=== PATIENT | male | born 1950 | race African-American/Black ===

== ENCOUNTER 2016-08-11 06:07 | Inpatient (IN) ==
[2016-08-08 13:38] LABS: Basophils % 1.2 % (0.0-0.8); Eosinophils # 0.2 10*3/uL (0.0-0.87); Eosinophils % 5.4 % (0.00-10.9); Hematocrit 45.9 VOL% (42.0-52.0); Hemoglobin 15.5 GM/DL (14.0-18.0); Lymphocytes # 1.2 10*3/uL (1.4-4.0); Lymphocytes % 35.1 % (21.2-54.2); Mean Corpuscular HGB Conc 33.8 GM/DL (32-36); Mean Corpuscular Hemoglobin 29 PG (27-34); Mean Corpuscular Volume 84.7 FL (87-102); Mean Platelet Volume 9.8 FL (9.6-12.0); Monocytes # 0.4 10*3/uL (0.11-0.8); Monocytes % 10.7 % (1.7-12.7); Neutrophils # 1.6 10*3/uL (1.4-7.4); Neutrophils % 47.6 % (38.7-73.9); Platelet Count 172 T/CUMM (130-400); Red Blood Count 5.42 MC/CUMM (3.8-5.5); Red Cell Distribution Width 12.5 % (9.3-17.3); White Blood Count 3.4 T/CUMM (4-12)
[2016-08-08 13:57] LABS: Bilirubin,Total 0.6 MG/DL (0.2-1.0); Calcium 8.7 MG/DL (8.5-10.1); Total Protein 6.8 G/DL (6.4-8.3)
[2016-08-08 13:58] LABS: Osmolality,Calculated 283.4 MOS/KG (273-304); Potassium 4.2 MMOL/L (3.5-5.1)
--- NOTE | 2016-08-09 08:39 | EKG Report ---
Stationary ECG Study [facility] Test Date: 08/08/2016 1:17:34 PM Pat Name: ELLE TRAMMELL Department: Room: Gender: M Bow Tacker: RONA 08/11/16 RY : 1950 Requested by: Clay Ovalles Order Number: [id number] Reading MD: JOSE DE JESUS DAVENPORT Intervals [place] Rate: 66 P: 56 OR: 188 QRS: 67 QRSD: 105 T: 192 QT: 381 QTc: 395 Interpretive Statements SINUS RHYTHM MODERATE T-WAVE ABNORMALITY, CONSIDER ANTEROLATERAL ISCHEMIA MODERATE T-WAVE ABNORMALITY, CONSIDER INFERIOR ISCHEMIA INTERPRETATION BASED ON A DEFAULT AGE OF 40 YEARS Electronically Signed On 08-09-16 11:16:58 CDT by JOSE DE JESUS DAVENPORT [email or web address]
[~2016-08-11 06:07] MED LIST: ceFAZolin 2,000 MG in PREMIX 1 EACH IV ONE
--- NOTE | 2016-08-11 07:15 | History and Physical Update ---
History and Physical Update - History and Physical H&P was reviewed, the patient examined and there: are no changes in the patients condition since last H&P was completed.
[2016-08-11] MEDS ORDERED: FAMOTIDINE 20 MG TABLET PO ONE (07:48)
[2016-08-11] MEDS ORDERED: LORazepam 1 MG TABLET PO ONE (07:48)
[2016-08-11] MEDS ORDERED: FAMOTIDINE 20 MG TABLET ONE (08:19)
[2016-08-11] MEDS ORDERED: LORazepam 1 MG TABLET ONE (08:19)
[2016-08-11] MEDS ORDERED: LACTATED RINGERS 1,000 ML IV SCH (08:30)
[2016-08-11] MEDS ORDERED: BUPIVACAINE 0.25% 50 ML VIAL ONE (10:21)
[2016-08-11] MEDS ORDERED: LIDOCAINE 2% 5 ML VIAL ONE (10:30)
[2016-08-11] MEDS ORDERED: PROPOFOL 200 MG/20 ML VIAL IV ONE (10:30)
[2016-08-11] MEDS ORDERED: ONDANSETRON 4 MG/2 ML VIAL ONE (10:30)
[2016-08-11] MEDS ORDERED: PHENYLEPHRINE 1 MG/10 ML SYRINGE IV ONE (10:30)
[2016-08-11] MEDS ORDERED: KETOROLAC 30 MG/1 ML VIAL ONE (10:30)
[2016-08-11] MEDS ORDERED: GLUCAGON 1 MG VIAL IM PRN (11:38)
[2016-08-11] MEDS ORDERED: ACETAMINOPHEN 325 MG TABLET PO PRN (11:38)
[2016-08-11] MEDS ORDERED: DEXTROSE 50% 25 GM/50 ML VIAL IV PRN (11:38)
[2016-08-11] MEDS ORDERED: HYDROmorphone 2 MG/1 ML VIAL IV PRN (11:38)
[2016-08-11] MEDS ORDERED: ONDANSETRON 4 MG/2 ML VIAL IV PRN (11:38)
[2016-08-11] MEDS ORDERED: BISACODYL 5 MG TABLET PO PRN (11:38)
--- NOTE | 2016-08-11 11:55 | Operative Note ---
Date of procedure: 08/11/16 Pre-op diagnosis: Chronic osteomyelitis of the left fifth metatarsal head Post-op diagnosis: same Procedure: Operative note: Preoperative diagnosis: Chronic osteomyelitis of the distal fifth metatarsal head with recurrent abscesses and cellulitis Postoperative diagnosis: Same Procedure: Amputation of the fifth metatarsal head with extensive debridement of the wound of the left lateral foot Surgeon Dr. 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 We have treated him multiple times with multiple products to get healing only to have it break down again. He recently was in office with a area of fluctuance on the dorsum of the foot at the fifth metatarsal head as well as drainage from the old wound. We did a CT scan of the of the foot that continue to show the chronic ostial destruction of the fifth metatarsal head. We favored a formal amputation of the fifth toe but he did not want to have the toe removed but did want us to go ahead and debride this bone as best we can to get this process under control. Protamine through same day surgery for this procedure. Procedure: With patient in the supine position prepped and draped in a sterile fashion timeout and antibiotics completed we approach this area of the left foot fifth metatarsal head area. I shaved with a knife somewhat callus from the plantar surface of this metatarsal head area just to get it under control. There was some drainage from a necrotic looking wound on the lateral part of the foot. At that point I elected to make an incision on the lateral part of the foot going through the skin subtenons tissue down to the level of the bone. I use light cauterization control bleeding at this point taking some soft tissue for cultures. As I debrided down to the bone of this area around the fifth metatarsal head was markedly deformed at this time with large amount of necrotic looking bone. We took some bone for cultures. That point I took a periosteal elevator and elevated up this area at the level of the joint system and then went across it with an oscillating saw to remove the distal metatarsal head and the and a portion of the proximal phalanges removing the phalangeal metatarsal joint. The toe was already dislocated at this point prior to this procedure but this is can a hip is clean this bone. Smooth off the bone edges at this time and we washed irrigated out the wound bed. Carefully debrided the skin edges together to get it is clean tissues we could then elected to lay a Austin drain in and closed with 3-0 nylon. Bulky dressing was then applied and the patient taken recovery room. Estimated blood loss 10 cc Sponge count correct 2 Drains: 1/4 inch Austin Complications: None Condition: Stable satisfactory Anesthesia: STEVENA Surgeon / Physician: Clay Ovalles Order Runner: Becca Phillip Estimated blood loss: other (10 cc) Specimens: other (Tissue for cultures and pathology) Condition: stable Disposition: floor Results - Labs CBC & BMP: 08/08/16 13:31 08/08/16 13:31 Discharge Plan - Discharge Medications No Action Benazepril [Lotensin] 20 mg PO DAILY amLODIPine [Norvasc] 5 mg PO DAILY Atorvastatin [Lipitor] 20 mg PO DAILY metFORMIN [Glucophage] 500 mg PO DAILY Ampicillin Cap 1 tablet PO QID - Follow Up or Referral - Forms/Instructions
--- NOTE | 2016-08-11 12:02 | Anesthesia ---
Anesthesia Post OP - Post Ansesthetic Evaluation Patient seen in post op: Yes Resp: within normal limits CV: within normal limits Mental: within normal limits Temp: within normal limits [id number]: within normal limits Nausea and Vomiting: within normal limits Pain: within normal limits
[2016-08-11] MEDS ORDERED: MIDAZOLAM 2 MG/2 ML VIAL ONE (12:03)
[2016-08-11] MEDS ORDERED: SEVOFLURANE 1 UNIT/15 MINUTE INH ONE (12:03)
[2016-08-11] MEDS ORDERED: fentaNYL 100 MCG/2 ML VIAL ONE (12:03)
[2016-08-11] MEDS ORDERED: LACTATED RINGERS 1,000 ML IV ONE (12:03)
[2016-08-11] MEDS: AMPICILLIN PO SCH ×3 (15:10→21:18)
[2016-08-11] MEDS: INSULIN REGULAR 100 UNIT/ML SUBCUT SCH ×2 (18:00→21:18)
[2016-08-11] MEDS: ceFAZolin 2,000 MG in PREMIX 1 EACH IV SCH (18:00)
[2016-08-11] MEDS: SODIUM CHLORIDE 0.9% 1,000 ML IV SCH ×2 (21:21)
[2016-08-12] MEDS: ceFAZolin 2,000 MG in PREMIX 1 EACH IV SCH ×2 (01:26→09:38)
[2016-08-12] MEDS: SODIUM CHLORIDE 0.9% 1,000 ML IV SCH ×2 (03:08→13:52)
[2016-08-12] MEDS ORDERED: ENOXAPARIN 40 MG/0.4 ML SYRINGE SUBCUT SCH (05:45)
[2016-08-12 06:07] LABS: Basophils % 0.8 % (0.0-0.8); Eosinophils # 0.2 10*3/uL (0.0-0.87); Eosinophils % 3.6 % (0.00-10.9); Hematocrit 42.4 VOL% (42.0-52.0); Hemoglobin 14.1 GM/DL (14.0-18.0); Immature Granulocytes % 0.4 %; Immature Granulocytes Absolute 0.02 #; Lymphocytes # 0.9 10*3/uL (1.4-4.0); Mean Corpuscular HGB Conc 33.3 GM/DL (32-36); Mean Corpuscular Hemoglobin 29 PG (27-34); Mean Platelet Volume 10.2 FL (9.6-12.0); Monocytes # 0.5 10*3/uL (0.11-0.8); Monocytes % 9.2 % (1.7-12.7); Neutrophils # 3.6 10*3/uL (1.4-7.4); Platelet Count 148 T/CUMM (130-400); Red Blood Count 4.93 MC/CUMM (3.8-5.5); Red Cell Distribution Width 12.4 % (9.3-17.3); White Blood Count 5.2 T/CUMM (4-12)
[2016-08-12 06:33] LABS: Calcium 8.2 MG/DL (8.5-10.1); Osmolality,Calculated 285.1 MOS/KG (273-304); Potassium 4.2 MMOL/L (3.5-5.1)
[2016-08-12] MEDS ORDERED: BENAZEPRIL 10 MG TABLET PO SCH (09:00)
[2016-08-12] MEDS ORDERED: PANTOPRAZOLE 40 MG TABLET PO SCH (09:00)
[2016-08-12] MEDS ORDERED: amLODIPine 5 MG TABLET PO SCH (09:00)
[2016-08-12] MEDS ORDERED: ATORVASTATIN 20 MG TABLET PO SCH (09:00)
[2016-08-12] MEDS ORDERED: SKIN HEALING OINT (AQUAPHOR) 50 GM TUBE TOP PRN (09:12)
[2016-08-12] MEDS: INSULIN REGULAR 100 UNIT/ML SUBCUT SCH ×2 (09:21→13:50)
[2016-08-12] MEDS ORDERED: BACITRACIN OINT 0.9 GM PACK TOP SCH (09:30)
[2016-08-12] MEDS: AMPICILLIN PO SCH ×2 (09:34→13:53)
--- NOTE | 2016-08-12 11:12 | Discharge Summary ---
Hospital Course - Hospital Course Hospital Course: Brief Discharge summary-This 66 year old male patient with known history of Charcot Stefany Tooth syndrome and adult onset diabetes as well as chronic osteomyelitis of the metatarsophalangeal joint on the left 5th metatarsal is brought through same day surgery for elective drainage and debridement of the left 5th metatarsal and lateral left foot. He has failed outpatient treatment and most recently was seen and treated in the office for an episode of cellulitis of the dorsal foot, with CT evidence for air in the soft tissues laterally. He did not particularly favor amputation at this time but was willing for us to proceed with aggressive debridement, so with that established, we took him to surgery on August 11, 2016, and performed an open debridement of the left lateral foot, with removal of the metatarsophalangeal joint and portion of the distal left talus. The wound was debrided extensively of chronic infected tissue, irrigated, and a drain placed, with primary suture closure. Postoperatively, he has done extremely well, and is today very comfortable, having no nausea or vomiting, and would like to be discharged home. He is having no active bleeding from the drain, although he did have modest bloody drainage overnight. His vital signs and labs have remained stable and he is quite comfortable in performing wound care, especially over a closed wound. We do have unexpected preliminary cultures showing, in addition to our previously cultured organisms, gram negative rods and jocelyne species. These will be addressed now with Cipro instead of his prior Ampicillin, and we will add a course of Diflucan. We will also switch to Gentamicin cream locally, and plan for him to come to the office on Thursday for drain removal. Diagnosis - Discharge Diagnosis (1) Ulcer of left foot Status: Resolved Specialty Discharge - Follow Up or Referrals Follow up with: Clay Ovalles MD [Physician] - (See Dr Ovalles Thursday for drain removal) Discharge Plan - Discharge Data Disposition: Disch To Home/Self Care Condition at Discharge: Stable Discharge Diet: diabetic diet Activity: other (Limit walking and standing) Hygiene: keep area(s) dry Weight Bearing at Discharge: other (Limit walking and standing to bathroom/table ; elevate as much as possible. Use offloading shoe and don't pull the velcro too tight over the incision. ) Driving: not until seen by doctor Contact your physician if you experience:: fever over 101, Redness or swelling, Nausea/Vomiting, Shortness of breath, Bleeding, pain uncontrolled by pain medications Wound / Dressing Care Instructions: Wash the left foot wound/incision daily with Hibiclens; rinse with wound cleanser. Pat dry. Apply a small amount of Gentamicin cream to the incision and drain site. Cover with a strip of Xeroform , cut to fit. Place a foam pad or dry gauze over this. Aquaphor to remainder of foot and leg. Heel pad to heel. Wrap foot and leg all the way to the knee with cast padding and secure with coban. - Discharge Medications New Ciprofloxacin Tab [Cipro Tab] 500 mg PO BID #14 tablet Gentamicin 0.1% Cream [Garamycin 0.1% Cream] 1 applic TOP DAILY #15 gm Fluconazole Tab [Diflucan Tab] 150 mg PO DAILY #4 tablet HYDROcodone/ACETAMIN 7.5-325 [Deputy 7.5-325] 1 tablet PO Q6HR #14 tablet Skin Healing Oint (Aquaphor) [Aquaphor] 1 applic TOP PRN PRN #1 applic PRN Reason: Dry Skin Continue Benazepril [Lotensin] 20 mg PO DAILY amLODIPine [Norvasc] 5 mg PO DAILY Atorvastatin [Lipitor] 20 mg PO DAILY metFORMIN [Glucophage] 500 mg PO DAILY Discontinued Ampicillin Cap 1 tablet PO QID - Follow Up or Referral - Forms/Instructions Exam - Constitutional Vitals: Period Temp Pulse Resp BP Sys/Saldivar Pulse Ox Last 24 Hr 97.0 F-101.5 F 54-73 12-20 99-147/56-91 94-100 General appearance: normal weight, no acute distress - Head Head exam: Present: normal inspection - Respiratory Respiratory exam: Present: clear to auscultation bilaterally - Cardiovascular Cardiovascular exam: Present: regular rate and rhythm - GI/Abdominal GI/Abdominal exam: Present: soft - Extremities Exam Extremities exam: Present: other (Left lateral foot wound is clean with mild oozing from the jordan drain. Sutures intact with skin edges well approximated. No edema, no redness, no tenderness. Calf soft. ) Discharge Results Procedures and tests throughout hospitalization: Pending Orders 08/11/16 Tissue (Biopsy) Culture and GS Routine Tissue (Biopsy) Culture and GS Routine Labs on day of discharge: Labs from last 24 hours 08/12/16 08/12/16 08/12/16 06:44 05:50 05:50 WBC 5.2 D RBC 4.93 Hgb 14.1 Hct 42.4 MCV 86.0 L MCH 29 MCHC 33.3 RDW 12.4 Plt Count 148 MPV 10.2 Neut % (Auto) 69.0 Lymph % (Auto) 17.0 L [place] % (Auto) 9.2 Eos % (Auto) 3.6 Baso % (Auto) 0.8 Neut # (Auto) 3.6 Lymph # (Auto) 0.9 L [place] # (Auto) 0.5 Eos # (Auto) 0.2 Baso # (Auto) 0.0 Immature Gran % 0.4 Nucleated RBC % 0.0 Immature Gran # 0.02 Nucleated RBCs # 0.00 Sodium 142 Potassium 4.2 Chloride 109 H Carbon Dioxide 28 Anion Gap 9.2 BUN 15 Creatinine 1.10 GFR Calculation 104 BUN/Creatinine Ratio 13.00 Glucose 143 H POC Glucose 136 H Calculated Osmolality 285.1 Calcium 8.2 L 08/11/16 08/11/16 19:57 16:14 WBC RBC Hgb Hct MCV MCH MCHC RDW Plt Count MPV Neut % (Auto) Lymph % (Auto) [place] % (Auto) Eos % (Auto) Baso % (Auto) Neut # (Auto) Lymph # (Auto) [place] # (Auto) Eos # (Auto) Baso # (Auto) Immature Gran % Nucleated RBC % Immature Gran # Nucleated RBCs # Sodium Potassium Chloride Carbon Dioxide Anion Gap BUN Creatinine GFR Calculation BUN/Creatinine Ratio Glucose POC Glucose 140 H 183 H Calculated Osmolality Calcium Preliminary micro results at discharge 08/11/16 Unknown Tissue Culture - Preliminary Bone - Left Little Gram Negative Rods 08/11/16 Unknown Tissue Culture - Preliminary Foot - Left Gram Negative Rods DS: Provider Date of admission: 08/11/16 11:38 Primary care physician: Faraz Escamilla, Attending physician on admission: Clay Ovalles MD Consults: 08/11/16 11:38 Consult to Wound Care - [place] [CONS] Routine Reason for Wound Care: Wound Care Management Consult Comment: left foot wound 08/11/16 11:45 Consult to Case Mgmt/Social Srvs [CONS] Routine Reason for Case Mgmt/Social Srvs: Discharge Planning Consult Comment: set home health for wound care 08/11/16 12:48 Consult to Pharmacy [CONS] Routine Reason for Pharmacy Consult: Adjust Meds Renal Funct 08/11/16 14:15 Consult to Pastoral Services [CONS] Routine Comment: Pastoral Screen: Request Phosphoric Acid Supervisor Visit Pastoral Screen Source of Request: Family Discharging clinician: Becca Phillip CNP, R
[2016-08-12 12:01] VITALS: BP 139/71
--- NOTE | 2016-08-13 10:42 | Pathology Report from [facility] ---
ACCESSION # : [id number] PATIENT NAME : Elle Trammell ORDERING DR : JENNA RAZA MD CLINICAL HX: Chronic osteomyelitis of the 5th metartarso phalangeal joint POST-OP DX: Same SPECIMEN INFO: Fifth metatarsal bone GROSS DESCRIPTION: The specimen is received in formalin labeled with the patient 's name Elle Trammell consists of a fragment of bone and attached soft tissue measuring 2.0 x 1.7 cm. Muffler Mechanic sections are submitted in one cassette following decalcification. DIAGNOSIS FOR ELLE TRAMMELL: LEFT FIFTH METATARSAL BONE, EXCISION: Chronic osteomyelitis. SERVICE DATE: 08/11/2016 REPORT DATE: 08/13/2016 PATHOLOGIST: Vin Winston M.D. [facility]
== END 2016-08-12 14:10 | disposition home or self-care (01) | DRG 617 ==
LOC: N.OR 06:07 → N.SDSINP 06:08 → N.3E 12:38
PROVIDERS: ADMIT Specialist; ATTEND Specialist

== ENCOUNTER 2017-04-15 09:47 | Inpatient (IN) ==
[2017-04-15] MEDS ORDERED: GLUCAGON 1 MG VIAL IM PRN (17:01)
[2017-04-15] MEDS ORDERED: DEXTROSE 50% 25 GM/50 ML VIAL IV PRN (17:01)
[2017-04-15 18:40] LABS: Basophils % 0.4 % (0.0-0.8); Eosinophils % 0.2 % (0.00-10.9); Hematocrit 39.8 VOL% (42.0-52.0); Hemoglobin 13.2 GM/DL (14.0-18.0); Immature Granulocytes % 0.5 %; Immature Granulocytes Absolute 0.04 #; Lymphocytes # 0.4 10*3/uL (1.4-4.0); Lymphocytes % 5.3 % (21.2-54.2); Mean Corpuscular HGB Conc 33.2 GM/DL (32-36); Mean Corpuscular Hemoglobin 29 PG (27-34); Mean Corpuscular Volume 87.7 FL (87-102); Mean Platelet Volume 9.9 FL (9.6-12.0); Monocytes # 0.4 10*3/uL (0.11-0.8); Monocytes % 4.5 % (1.7-12.7); Neutrophils # 7.5 10*3/uL (1.4-7.4); Neutrophils % 89.1 % (38.7-73.9); Platelet Count 155 T/CUMM (130-400); Red Blood Count 4.54 MC/CUMM (3.8-5.5); Red Cell Distribution Width 12.3 % (9.3-17.3); White Blood Count 8.4 T/CUMM (4-12)
[2017-04-15 18:57] LABS: Calcium 8.3 MG/DL (8.5-10.1); Osmolality,Calculated 279.8 MOS/KG (273-304); Potassium 4.1 MMOL/L (3.5-5.1)
[2017-04-15] MEDS: SODIUM CHLORIDE 0.45% 1,000 ML IV SCH (20:41)
[2017-04-15] MEDS: INSULIN LISPRO 100 UNIT/ML SUBCUT SCH (21:31)
[2017-04-15] MEDS: VANCOMYCIN INJ 1,250 MG in SODIUM CHLORIDE 0.45% 250 ML IV SCH (23:05)
[2017-04-15] MEDS: CEFTAROLINE 600 MG in SODIUM CHLORIDE 0.9% 50 ML IV SCH (23:27)
[2017-04-16] MEDS: SODIUM CHLORIDE 0.45% 1,000 ML IV SCH ×3 (06:34→17:41)
[2017-04-16] MEDS ORDERED: metFORMIN 500 MG TABLET PO SCH (09:00)
[2017-04-16] MEDS ORDERED: amLODIPine 5 MG TABLET PO SCH (09:00)
[2017-04-16] MEDS: ATORVASTATIN 20 MG TABLET PO SCH (09:31)
[2017-04-16] MEDS: BENAZEPRIL 40 MG TABLET PO SCH (09:31)
[2017-04-16] MEDS: INSULIN LISPRO 100 UNIT/ML SUBCUT SCH ×4 (09:32→21:27)
[2017-04-16] MEDS: VANCOMYCIN INJ 1,250 MG in SODIUM CHLORIDE 0.45% 250 ML IV SCH ×2 (11:35→23:29)
[2017-04-16] MEDS: SODIUM HYPOCHLORITE 0.25% IRRIG 473 ML BOTTLE TOP SCH (13:30)
[2017-04-16] MEDS: CEFTAROLINE 600 MG in SODIUM CHLORIDE 0.9% 50 ML IV SCH (14:28)
[2017-04-16] MEDS: metFORMIN 500 MG TABLET PO SCH (21:27)
[2017-04-16] MEDS: INSULIN GLARGINE 100 UNIT/ML SUBCUT SCH (21:29)
[2017-04-17] MEDS: CEFTAROLINE 600 MG in SODIUM CHLORIDE 0.9% 50 ML IV SCH (01:28)
[2017-04-17] MEDS: SODIUM CHLORIDE 0.45% 1,000 ML IV SCH ×3 (05:27→17:06)
[2017-04-17] MEDS: metFORMIN 500 MG TABLET PO SCH ×2 (09:30→21:47)
[2017-04-17] MEDS: BENAZEPRIL 40 MG TABLET PO SCH (09:30)
[2017-04-17] MEDS: INSULIN GLARGINE 100 UNIT/ML SUBCUT SCH (09:30)
[2017-04-17] MEDS: INSULIN LISPRO 100 UNIT/ML SUBCUT SCH ×4 (09:30→21:52)
[2017-04-17] MEDS: ATORVASTATIN 20 MG TABLET PO SCH (09:31)
[2017-04-17] MEDS: SODIUM HYPOCHLORITE 0.25% IRRIG 473 ML BOTTLE TOP SCH (09:31)
[2017-04-17] MEDS: VANCOMYCIN INJ 1,250 MG in SODIUM CHLORIDE 0.45% 250 ML IV SCH (12:04)
[2017-04-17] MEDS: VANCOMYCIN INJ 1,500 MG in SODIUM CHLORIDE 0.9% 500 ML IV SCH (12:09)
[2017-04-18] MEDS: VANCOMYCIN INJ 1,500 MG in SODIUM CHLORIDE 0.9% 500 ML IV SCH ×2 (01:25→12:06)
[2017-04-18] MEDS: BENAZEPRIL 40 MG TABLET PO SCH (10:12)
[2017-04-18] MEDS: INSULIN GLARGINE 100 UNIT/ML SUBCUT SCH (10:12)
[2017-04-18] MEDS: INSULIN LISPRO 100 UNIT/ML SUBCUT SCH ×4 (10:12→21:08)
[2017-04-18] MEDS: ATORVASTATIN 20 MG TABLET PO SCH (10:13)
[2017-04-18] MEDS: SODIUM HYPOCHLORITE 0.25% IRRIG 473 ML BOTTLE TOP SCH (10:13)
[2017-04-18] MEDS: metFORMIN 500 MG TABLET PO SCH ×2 (10:13→21:18)
[2017-04-19] MEDS: VANCOMYCIN INJ 1,500 MG in SODIUM CHLORIDE 0.9% 500 ML IV SCH ×3 (03:05→22:50)
[2017-04-19] MEDS: INSULIN LISPRO 100 UNIT/ML SUBCUT SCH ×4 (08:09→21:50)
[2017-04-19] MEDS: BENAZEPRIL 40 MG TABLET PO SCH (09:13)
[2017-04-19] MEDS: metFORMIN 500 MG TABLET PO SCH ×2 (09:13→21:50)
[2017-04-19] MEDS: ATORVASTATIN 20 MG TABLET PO SCH (09:14)
[2017-04-19] MEDS: INSULIN GLARGINE 100 UNIT/ML SUBCUT SCH (09:14)
[2017-04-19] MEDS: SODIUM HYPOCHLORITE 0.25% IRRIG 473 ML BOTTLE TOP SCH (18:54)
[2017-04-20 05:46] LABS: Calcium 8.1 MG/DL (8.5-10.1); Osmolality,Calculated 281.1 MOS/KG (273-304); Potassium 3.9 MMOL/L (3.5-5.1)
[2017-04-20] MEDS: INSULIN LISPRO 100 UNIT/ML SUBCUT SCH ×4 (07:05→21:31)
[2017-04-20] MEDS: BENAZEPRIL 40 MG TABLET PO SCH (10:39)
[2017-04-20] MEDS: CIPROFLOXACIN INJ 400 MG in PREMIX 1 EACH IV SCH ×2 (10:40→21:20)
[2017-04-20] MEDS: ATORVASTATIN 20 MG TABLET PO SCH (10:40)
[2017-04-20] MEDS: INSULIN GLARGINE 100 UNIT/ML SUBCUT SCH (10:40)
[2017-04-20] MEDS: metFORMIN 500 MG TABLET PO SCH ×2 (10:40→21:20)
[2017-04-20] MEDS: SODIUM HYPOCHLORITE 0.25% IRRIG 473 ML BOTTLE TOP SCH (10:40)
[2017-04-20] MEDS: VANCOMYCIN INJ 1,500 MG in SODIUM CHLORIDE 0.9% 500 ML IV SCH ×2 (13:23→13:32)
[2017-04-21] MEDS: VANCOMYCIN INJ 1,500 MG in SODIUM CHLORIDE 0.9% 500 ML IV SCH ×2 (01:02→12:47)
[2017-04-21 06:30] LABS: Basophils % 0.7 % (0.0-0.8); Eosinophils # 0.3 10*3/uL (0.0-0.87); Eosinophils % 5.7 % (0.00-10.9); Hematocrit 38.1 VOL% (42.0-52.0); Hemoglobin 12.7 GM/DL (14.0-18.0); Immature Granulocytes % 0.8 %; Immature Granulocytes Absolute 0.05 #; Lymphocytes # 1.1 10*3/uL (1.4-4.0); Lymphocytes % 17.6 % (21.2-54.2); Mean Corpuscular HGB Conc 33.3 GM/DL (32-36); Mean Corpuscular Hemoglobin 28 PG (27-34); Mean Corpuscular Volume 85.2 FL (87-102); Mean Platelet Volume 10.4 FL (9.6-12.0); Monocytes # 0.5 10*3/uL (0.11-0.8); Monocytes % 8.7 % (1.7-12.7); Neutrophils % 66.5 % (38.7-73.9); Platelet Count 259 T/CUMM (130-400); Red Blood Count 4.47 MC/CUMM (3.8-5.5); Red Cell Distribution Width 12.3 % (9.3-17.3)
[2017-04-21 07:03] LABS: Calcium 8.3 MG/DL (8.5-10.1); Potassium 4.1 MMOL/L (3.5-5.1)
[2017-04-21] MEDS: SODIUM HYPOCHLORITE 0.25% IRRIG 473 ML BOTTLE TOP SCH (09:10)
[2017-04-21] MEDS: INSULIN LISPRO 100 UNIT/ML SUBCUT SCH ×4 (09:10→21:19)
[2017-04-21] MEDS: INSULIN GLARGINE 100 UNIT/ML SUBCUT SCH (09:11)
[2017-04-21] MEDS: metFORMIN 500 MG TABLET PO SCH ×2 (09:11→21:19)
[2017-04-21] MEDS: CIPROFLOXACIN INJ 400 MG in PREMIX 1 EACH IV SCH ×2 (09:31→21:58)
[2017-04-21] MEDS: BENAZEPRIL 40 MG TABLET PO SCH (09:31)
[2017-04-21] MEDS: ATORVASTATIN 20 MG TABLET PO SCH (09:31)
[2017-04-21] MEDS ORDERED: ONDANSETRON 4 MG/2 ML VIAL IV PRN (11:28)
[2017-04-21] MEDS ORDERED: HYDROmorphone 2 MG/1 ML VIAL IV PRN (11:28)
[2017-04-21] MEDS ORDERED: MIDAZOLAM 2 MG/2 ML VIAL ONE (13:36)
[2017-04-21] MEDS ORDERED: PROPOFOL 200 MG/20 ML VIAL IV ONE (13:36)
[2017-04-21] MEDS ORDERED: KETOROLAC 30 MG/1 ML VIAL ONE (13:36)
[2017-04-21] MEDS ORDERED: fentaNYL 100 MCG/2 ML VIAL ONE (13:36)
[2017-04-21] MEDS ORDERED: SEVOFLURANE 1 UNIT/15 MINUTE INH ONE (13:36)
[2017-04-21] MEDS ORDERED: ONDANSETRON 4 MG/2 ML VIAL ONE (13:37)
[2017-04-21] MEDS ORDERED: ACETAMINOPHEN 1,000 MG/100 ML VIAL IV ONE (13:37)
[2017-04-21] MEDS: AMPICILLIN INJ 2,000 MG in SODIUM CHLORIDE 0.9% 50 ML IV SCH ×2 (15:44→21:20)
[2017-04-22] MEDS: AMPICILLIN INJ 2,000 MG in SODIUM CHLORIDE 0.9% 50 ML IV SCH ×4 (02:03→21:06)
[2017-04-22] MEDS: ACETAMINOPHEN 325 MG TABLET PO PRN ×3 (02:04→21:05)
[2017-04-22] MEDS: INSULIN LISPRO 100 UNIT/ML SUBCUT SCH ×4 (08:59→20:55)
[2017-04-22] MEDS: metFORMIN 500 MG TABLET PO SCH ×2 (09:19→21:03)
[2017-04-22] MEDS: ATORVASTATIN 20 MG TABLET PO SCH (09:19)
[2017-04-22] MEDS: SODIUM HYPOCHLORITE 0.25% IRRIG 473 ML BOTTLE TOP SCH (09:19)
[2017-04-22] MEDS: INSULIN GLARGINE 100 UNIT/ML SUBCUT SCH (09:19)
[2017-04-22] MEDS: BENAZEPRIL 40 MG TABLET PO SCH (09:20)
[2017-04-22] MEDS ORDERED: LEVOFLOXACIN 750 MG TABLET PO ONE (09:46)
[2017-04-22] MEDS ORDERED: AZITHROMYCIN 250 MG TABLET PO ONE (09:49)
[2017-04-22] MEDS: guaiFENesin/DM ER 600-30 MG TABLET PO SCH ×2 (10:55→21:04)
[2017-04-22 16:31] LABS: Apearance,Urine Slightly Hazy (Clear); Bacteria,Urine Occasional /HPF (Few); Bilirubin,Urine Negative (Negative); Blood, Urine Small mg/dL (Negative); Glucose,Urine (UA) Negative (Negative); Ketones,Urine Negative (Negative); Mucus,Urine Occasional /LPF (Occasional); Nitrite,Urine Negative (Negative); Protein,Urine 30 MG/DL; RBC,Urine 1 /HPF (0-4); Urine Color Yellow (Yellow); Urine Specific Gravity 1.023 (1.001-1.035); Urine Urobilinogen < 2.0 EU/DL (0.2-1.0); WBC,Urine 3 /HPF (0-6)
[2017-04-22] MEDS: CIPROFLOXACIN 100 MG/ML 100 ML/BOTTLE PO SCH (21:03)
[2017-04-23] MEDS: ACETAMINOPHEN 325 MG TABLET PO PRN (03:14)
[2017-04-23] MEDS: AMPICILLIN INJ 2,000 MG in SODIUM CHLORIDE 0.9% 50 ML IV SCH ×2 (03:15→09:48)
[2017-04-23] MEDS: INSULIN LISPRO 100 UNIT/ML SUBCUT SCH ×2 (07:48→12:15)
[2017-04-23] MEDS: ATORVASTATIN 20 MG TABLET PO SCH (09:34)
[2017-04-23] MEDS: guaiFENesin/DM ER 600-30 MG TABLET PO SCH (09:34)
[2017-04-23] MEDS: metFORMIN 500 MG TABLET PO SCH (09:34)
[2017-04-23] MEDS: INSULIN GLARGINE 100 UNIT/ML SUBCUT SCH (09:34)
[2017-04-23] MEDS: BENAZEPRIL 40 MG TABLET PO SCH (09:34)
[2017-04-23] MEDS: SODIUM HYPOCHLORITE 0.25% IRRIG 473 ML BOTTLE TOP SCH (09:35)
[2017-04-23] MEDS: CIPROFLOXACIN 100 MG/ML 100 ML/BOTTLE PO SCH (09:35)
[2017-04-23] MEDS ORDERED: methylPREDNISolone SOD SUC 40 MG/1 ML VIAL IV ONE (10:52)
[2017-04-23] MEDS ORDERED: MONTELUKAST 10 MG TABLET PO SCH (11:00)
[2017-04-23 11:45] VITALS: BP 148/79
== END 2017-04-23 14:50 | disposition home health service (06) | DRG 629 ==
LOC: N.3E → OBSVTOIN 15:35 → N.3E 04-23 15:22
PROVIDERS: ADMIT Surgery; ATTEND Surgery

== ENCOUNTER 2018-02-02 14:39 | Inpatient (IN) ==
[2018-02-02] MEDS ORDERED: CHLORHEXIDINE 4% SOLN 118 ML BOTTLE TOP ONE (15:43)
[2018-02-02] MEDS ORDERED: ONDANSETRON 4 MG/2 ML VIAL IV PRN (16:42)
[2018-02-02] MEDS ORDERED: GLUCAGON 1 MG VIAL IM PRN (16:49)
[2018-02-02] MEDS ORDERED: DEXTROSE 50% 25 GM/50 ML VIAL IV PRN (16:49)
[2018-02-02 17:58] LABS: Basophils % 0.6 % (0.0-0.8); Eosinophils # 0.2 10*3/uL (0.0-0.87); Eosinophils % 3.3 % (0.00-10.9); Hematocrit 33.4 VOL% (42.0-52.0); Hemoglobin 10.3 GM/DL (14.0-18.0); Immature Granulocytes % 0.6 %; Immature Granulocytes Absolute 0.04 #; Lymphocytes % 14.7 % (21.2-54.2); Mean Corpuscular HGB Conc 30.8 GM/DL (32-36); Mean Corpuscular Hemoglobin 28 PG (27-34); Mean Corpuscular Volume 89.1 FL (87-102); Mean Platelet Volume 9.7 FL (9.6-12.0); Monocytes # 0.6 10*3/uL (0.11-0.8); Monocytes % 9.3 % (1.7-12.7); Neutrophils # 4.8 10*3/uL (1.4-7.4); Neutrophils % 71.5 % (38.7-73.9); Platelet Count 273 T/CUMM (130-400); Red Blood Count 3.75 MC/CUMM (3.8-5.5); Red Cell Distribution Width 12.3 % (9.3-17.3); White Blood Count 6.7 T/CUMM (4-12)
[2018-02-02 18:20] LABS: Alanine Aminotransferase 26 U/L (16-61); Albumin 3.1 G/DL (3.4-5.0); Alkaline Phosphatase 76 U/L (45-117); Aspartate Amino Transferase 13 U/L (0-37); Bilirubin,Total < 0.39 MG/DL (0.2-1.0); Blood Urea Nitrogen 20 MG/DL (7-18); Calcium 8.9 MG/DL (8.5-10.1); Glucose 111 MG/DL (74-106); Osmolality,Calculated 278.7 MOS/KG (273-304); Potassium 4.8 MMOL/L (3.5-5.1); Sodium 138 MMOL/L (136-145); Total Protein 8.4 G/DL (6.4-8.3)
[2018-02-02] MEDS: ENOXAPARIN 30 MG/0.3 ML SYRINGE SUBCUT SCH (21:01)
[2018-02-02] MEDS: LEVOFLOXACIN INJ 500 MG in PREMIX 1 EACH IV SCH (21:01)
[2018-02-02] MEDS: INSULIN REGULAR 100 UNIT/ML SUBCUT SCH (21:02)
[2018-02-02] MEDS: cefTAZidime 1,000 MG in SYRINGE 1 EACH IV SCH (22:05)
[2018-02-03 05:10] LABS: Basophils % 0.5 % (0.0-0.8); Eosinophils # 0.2 10*3/uL (0.0-0.87); Eosinophils % 3.7 % (0.00-10.9); Hematocrit 31.1 VOL% (42.0-52.0); Hemoglobin 10.1 GM/DL (14.0-18.0); Immature Granulocytes % 0.5 %; Immature Granulocytes Absolute 0.03 #; Lymphocytes # 1.4 10*3/uL (1.4-4.0); Lymphocytes % 22.8 % (21.2-54.2); Mean Corpuscular HGB Conc 32.5 GM/DL (32-36); Mean Corpuscular Hemoglobin 28 PG (27-34); Mean Corpuscular Volume 85.9 FL (87-102); Mean Platelet Volume 9.8 FL (9.6-12.0); Monocytes # 0.7 10*3/uL (0.11-0.8); Monocytes % 11.5 % (1.7-12.7); Neutrophils # 3.6 10*3/uL (1.4-7.4); Platelet Count 251 T/CUMM (130-400); Red Blood Count 3.62 MC/CUMM (3.8-5.5); Red Cell Distribution Width 12.3 % (9.3-17.3); White Blood Count 5.9 T/CUMM (4-12)
[2018-02-03 05:42] LABS: Albumin 2.6 G/DL (3.4-5.0); Bilirubin,Total 0.5 MG/DL (0.2-1.0); Calcium 8.7 MG/DL (8.5-10.1); Osmolality,Calculated 278.5 MOS/KG (273-304); Potassium 4.7 MMOL/L (3.5-5.1); Total Protein 7.7 G/DL (6.4-8.3)
[2018-02-03] MEDS: cefTAZidime 1,000 MG in SYRINGE 1 EACH IV SCH ×3 (05:54→21:35)
[2018-02-03] MEDS: INSULIN REGULAR 100 UNIT/ML SUBCUT SCH ×4 (07:57→21:34)
[2018-02-03] MEDS: SKIN HEALING OINT (AQUAPHOR) 50 GM TUBE TOP PRN (08:40)
[2018-02-03] MEDS: SODIUM HYPOCHLORITE 0.25% IRRIG 473 ML BOTTLE TOP SCH (08:40)
[2018-02-03] MEDS: amLODIPine 5 MG TABLET PO SCH (09:12)
[2018-02-03] MEDS: PANTOPRAZOLE 40 MG TABLET PO SCH (09:12)
[2018-02-03] MEDS: ATORVASTATIN 20 MG TABLET PO SCH (09:12)
[2018-02-03] MEDS: LEVOFLOXACIN INJ 500 MG in PREMIX 1 EACH IV SCH (18:04)
[2018-02-03] MEDS: ENOXAPARIN 30 MG/0.3 ML SYRINGE SUBCUT SCH (21:35)
[2018-02-04] MEDS: cefTAZidime 1,000 MG in SYRINGE 1 EACH IV SCH ×3 (05:49→22:33)
[2018-02-04] MEDS: SKIN HEALING OINT (AQUAPHOR) 50 GM TUBE TOP PRN (08:00)
[2018-02-04] MEDS: SODIUM HYPOCHLORITE 0.25% IRRIG 473 ML BOTTLE TOP SCH (08:00)
[2018-02-04] MEDS: INSULIN REGULAR 100 UNIT/ML SUBCUT SCH ×4 (08:07→20:53)
[2018-02-04] MEDS: ATORVASTATIN 20 MG TABLET PO SCH (09:09)
[2018-02-04] MEDS: PANTOPRAZOLE 40 MG TABLET PO SCH (09:09)
[2018-02-04] MEDS: amLODIPine 5 MG TABLET PO SCH (09:09)
[2018-02-04] MEDS: LEVOFLOXACIN INJ 500 MG in PREMIX 1 EACH IV SCH (17:37)
[2018-02-04] MEDS: ENOXAPARIN 30 MG/0.3 ML SYRINGE SUBCUT SCH (20:54)
[2018-02-05 05:16] LABS: Basophils % 0.8 % (0.0-0.8); Eosinophils # 0.1 10*3/uL (0.0-0.87); Eosinophils % 2.7 % (0.00-10.9); Hematocrit 31.6 VOL% (42.0-52.0); Hemoglobin 10.3 GM/DL (14.0-18.0); Immature Granulocytes % 0.4 %; Immature Granulocytes Absolute 0.02 #; Lymphocytes # 1.4 10*3/uL (1.4-4.0); Lymphocytes % 26.6 % (21.2-54.2); Mean Corpuscular HGB Conc 32.6 GM/DL (32-36); Mean Corpuscular Hemoglobin 28 PG (27-34); Mean Corpuscular Volume 85.4 FL (87-102); Monocytes # 0.4 10*3/uL (0.11-0.8); Monocytes % 8.4 % (1.7-12.7); Neutrophils # 3.2 10*3/uL (1.4-7.4); Neutrophils % 61.1 % (38.7-73.9); Platelet Count 258 T/CUMM (130-400); Red Cell Distribution Width 12.3 % (9.3-17.3); White Blood Count 5.2 T/CUMM (4-12)
[2018-02-05 05:35] LABS: Calcium 8.7 MG/DL (8.5-10.1); Osmolality,Calculated 280.5 MOS/KG (273-304); Potassium 4.3 MMOL/L (3.5-5.1)
[2018-02-05] MEDS: cefTAZidime 1,000 MG in SYRINGE 1 EACH IV SCH ×2 (07:05→15:11)
[2018-02-05] MEDS: INSULIN REGULAR 100 UNIT/ML SUBCUT SCH ×2 (07:33→15:11)
[2018-02-05] MEDS: PANTOPRAZOLE 40 MG TABLET PO SCH (09:40)
[2018-02-05] MEDS: ATORVASTATIN 20 MG TABLET PO SCH (09:40)
[2018-02-05] MEDS: amLODIPine 5 MG TABLET PO SCH (09:40)
[2018-02-05 10:58] VITALS: BP 116/60
[2018-02-05] MEDS: SODIUM HYPOCHLORITE 0.25% IRRIG 473 ML BOTTLE TOP SCH (15:11)
== END 2018-02-05 14:21 | disposition home or self-care (01) | DRG 638 ==
LOC: N.3E 15:51 → SUATTDRO 15:51
PROVIDERS: ADMIT Internal Medicine; ATTEND Internal Medicine